=== PATIENT | female | born 1990 | race Caucasian/White ===

== ENCOUNTER 2016-10-02 17:53 | Emergency (ER) | payer OTHER ==
[~2016-10-02] VITALS: Ht 152.4 cm; Wt 96.7 kg
[~2016-10-02 17:53] MED LIST: ATARAX,VISTARIL25 MG PO; CIPRO250 MG PO; DIAMOX PO; DIAMOX SEQUELS500 MG PO; DIAZEPAM5 MG PO; DICYCLOMINE HCL20 MG PO; FORTAMET500 MG PO; GEODON20 MG PO; GEODON80 MG PR; HYDROXYZINE HCL10 MG PO; LAMICTAL5 MG PO; LITHIUM CARBON450 MG PO; MACRODANTIN100 MG PO; MEDROL DOSEPAK4 MG PO; MOBIC15 MG PO; NAPROSYN250 MG PO; PERCOCET 5/31 TABLET PO; PREVACID 24HR15 MG PO; PRILOSEC OTC20 MG PR; PROTONIX40 MG PO; PROZAC40 MG PO; SKELAXIN800 MG PO; TOPIRAMATE25 MG PO; VALIUM5 MG PO; XANAX0.25 MG PO; XANAX1 MG PR; ZANTAC75 M1 PO
[2016-10-02] MEDS ORDERED: KLONOPIN0.5 M1 PO (19:17)
[2016-10-02 20:06] VITALS: BP 111/80
== END 2016-10-02 20:07 | disposition home or self-care (01) ==
LOC: EME → EDBD 17:53 → EME 17:53
DX: F41.9 Anxiety disorder, unspecified (principal); F31.4 Bipolar disorder, current episode depressed, severe, without psychotic features; F17.200 Nicotine dependence, unspecified, uncomplicated
CPT/HCPCS: 90839; 99281; 99284

== ENCOUNTER 2016-10-04 14:27 | Emergency (ER) | payer OTHER ==
[~2016-10-04] VITALS: Ht 152.4 cm; Wt 94.7 kg
[~2016-10-04 14:27] MED LIST changes: +KLONOPIN0.5 M1 PO
[2016-10-04] MEDS ORDERED: XANAX0.5 MG PO (14:54)
[2016-10-04 15:45] VITALS: BP 110/67
== END 2016-10-04 15:48 | disposition home or self-care (01) ==
LOC: EME 14:27
DX: F41.1 Generalized anxiety disorder (principal); R07.89 Other chest pain; F17.200 Nicotine dependence, unspecified, uncomplicated
CPT/HCPCS: 99281; 99284

== ENCOUNTER 2016-10-27 09:37 | Emergency (ER) | payer OTHER ==
[~2016-10-27] VITALS: Ht 152.4 cm; Wt 95.0 kg
[~2016-10-27 09:37] MED LIST changes: +XANAX0.5 MG PO
[2016-10-27] MEDS ORDERED: XANAX0.5 MG PO (10:06)
[2016-10-27 10:14] VITALS: BP 98/67
== END 2016-10-27 10:24 | disposition home or self-care (01) ==
LOC: EME 09:37
DX: F41.9 Anxiety disorder, unspecified (principal); F17.200 Nicotine dependence, unspecified, uncomplicated
CPT/HCPCS: 99281; 99283

== ENCOUNTER 2016-12-11 12:40 | Emergency (ER) | payer OTHER ==
[~2016-12-11] VITALS: Ht 152.4 cm; Wt 97.6 kg
[2016-12-11] MEDS ORDERED: PANTOPRAZOLE SO40 MG PO (12:42)
[2016-12-11] MEDS ORDERED: FLUOXETINE HCL10 MG PO (12:43)
[2016-12-11] MEDS ORDERED: ARIPIPRAZOLE10 MG PO (12:43)
[2016-12-11] MEDS ORDERED: ACETAZOLAMIDE500 MG PO (12:43)
[2016-12-11] MEDS ORDERED: LITHIUM CARBON450 MG PO (12:44)
[2016-12-11] MEDS ORDERED: LAMOTRIGINE100 MG PO (12:44)
[2016-12-11] MEDS ORDERED: TOPIRAMATE50 MG PO (12:44)
[2016-12-11] MEDS ORDERED: BUSPAR5 MG PO (12:44)
[2016-12-11] MEDS ORDERED: MOTRIN600 MG PO (15:06)
[2016-12-11 15:29] VITALS: BP 102/58
== END 2016-12-11 15:29 | disposition home or self-care (01) ==
LOC: EME → EDBD 12:40 → EME 12:40
DX: M79.652 Pain in left thigh (principal); M25.552 Pain in left hip
CPT/HCPCS: 73502; 73552; 93971; 99281; 99284; J1885

== ENCOUNTER 2017-01-28 17:34 | Emergency (ER) | payer OTHER ==
[~2017-01-28] VITALS: Ht 154.9 cm; Wt 96.1 kg
[~2017-01-28 17:34] MED LIST changes: +ACETAZOLAMIDE500 MG PO; +ARIPIPRAZOLE10 MG PO; +BUSPAR5 MG PO; +FLUOXETINE HCL10 MG PO; +LAMOTRIGINE100 MG PO; +MOTRIN600 MG PO; +PANTOPRAZOLE SO40 MG PO; +TOPIRAMATE50 MG PO
[2017-01-28] MEDS ORDERED: MOBIC7.5 MG PO (19:35)
[2017-01-28 19:49] VITALS: BP 123/82
[2017-01-29] MEDS ORDERED: FLEXERIL10 MG PO (10:18)
== END 2017-01-28 19:50 | disposition home or self-care (01) ==
LOC: EME 17:34
DX: M54.42 Lumbago with sciatica, left side (principal); F17.200 Nicotine dependence, unspecified, uncomplicated
CPT/HCPCS: 72100; 99281; 99284; J1885

== ENCOUNTER 2017-01-29 09:18 | Emergency (ER) | payer OTHER ==
[~2017-01-29] VITALS: Ht 154.9 cm; Wt 94.5 kg
[~2017-01-29 09:18] MED LIST changes: +MOBIC7.5 MG PO
[2017-01-29] MEDS ORDERED: FLEXERIL10 MG PO (10:18)
[2017-01-29 10:29] VITALS: BP 108/60
== END 2017-01-29 10:30 | disposition home or self-care (01) ==
LOC: EME 09:18
DX: M54.30 Sciatica, unspecified side (principal); J45.909 Unspecified asthma, uncomplicated; K58.9 Irritable bowel syndrome, unspecified
CPT/HCPCS: 99281; 99284

== ENCOUNTER 2017-02-01 11:52 | Emergency (ER) | payer OTHER ==
[~2017-02-01 11:52] MED LIST changes: +FLEXERIL10 MG PO
== END 2017-02-01 12:20 | disposition left against medical advice (07) ==
LOC: EME 11:52
DX: M54.89 Other dorsalgia (principal); M25.562 Pain in left knee; Z53.21 Procedure and treatment not carried out due to patient leaving prior to being seen by health care provider

== ENCOUNTER 2017-06-14 00:30 | Emergency (ER) | payer OTHER ==
[~2017-06-14] VITALS: Ht 154.9 cm; Wt 87.9 kg
[2017-06-14 01:32] VITALS: BP 126/74
== END 2017-06-14 01:32 | disposition home or self-care (01) ==
LOC: EME 00:30
DX: M25.552 Pain in left hip (principal); G89.29 Other chronic pain; F17.200 Nicotine dependence, unspecified, uncomplicated
CPT/HCPCS: 99281; 99283

== ENCOUNTER 2017-07-25 13:35 | Emergency (ER) | payer OTHER ==
[~2017-07-25] VITALS: Ht 154.9 cm; Wt 92.7 kg
[2017-07-25] MEDS ORDERED: MOTRIN600 MG PO (14:07)
[2017-07-25] MEDS ORDERED: ROBAXIN500 MG PO (14:07)
[2017-07-25] MEDS ORDERED: ULTRAM50 MG PO (14:07)
[2017-07-25 14:25] VITALS: BP 103/68
== END 2017-07-25 14:59 | disposition home or self-care (01) ==
LOC: EME 13:35
DX: M54.42 Lumbago with sciatica, left side (principal); K58.9 Irritable bowel syndrome, unspecified; F17.210 Nicotine dependence, cigarettes, uncomplicated
CPT/HCPCS: 99281; 99283

== ENCOUNTER 2017-10-28 19:51 | Emergency (ER) | payer OTHER ==
[~2017-10-28] VITALS: Ht 154.9 cm; Wt 92.7 kg
[~2017-10-28 19:51] MED LIST changes: +ROBAXIN500 MG PO; +ULTRAM50 MG PO
[2017-10-28 20:43] LABS: HEMATOCRIT 39.3 % (36.0-46.0); HEMOGLOBIN 13.1 G/DL (11.9-15.5); MCH 28.1 PG (29.0-34.0); MCHC 33.3 G/DL (30.0-36.0); MCV 84.2 FL (83-99); PLATELET COUNT 311 K/uL (156-360); RBC DIS.WIDTH-CV 13.8 % (11.8-14.6); RBC DIS.WIDTH-SD 42.4 % (39-53); RED BLOOD COUNT 4.67 M/uL (3.80-5.20); WHITE BLOOD COUNT 9.2 K/uL (4.1-10.2)
[2017-10-28 20:54] LABS: CHLORIDE 108 mEq/L (99-109); POTASSIUM 4.1 mEq/L (3.7-5.4); SODIUM 140 mEq/L (136-147)
[2017-10-28 20:56] LABS: GLUCOSE 90 mg/dL (70-99)
[2017-10-28 20:57] LABS: AMPHETAMINE NEGATIVE (500 ng/mL); BARBITURATES NEGATIVE (200 ng/mL); BENZODIAZEPINES PRESUMPTIVE POSITIVE (150 ng/mL); BUPRENORPHINE NEGATIVE (10 ng/mL); COCAINE NEGATIVE (150 ng/mL); METHADONE NEGATIVE (200 ng/mL); METHAMPHETAMINE NEGATIVE (500 ng/mL); OPIATES (MORPHINE) NEGATIVE (100 ng/mL); OXYCODONE NEGATIVE (100 ng/mL); PHENCYCLIDINE NEGATIVE (25 ng/mL); PROPOXYPHENE NEGATIVE (300 ng/mL); THC CANNABINOIDS PRESUMPTIVE POSITIVE (50 ng/mL); TRICYCLIC ANTIDEPRESSANTS NEGATIVE (300 ng/mL)
[2017-10-28 20:59] LABS: SERUM ETHYL ALCOHOL < 10 mg/dL
[2017-10-28 21:00] LABS: CREATININE 0.9 mg/dL (0.6-1.3); GFR ESTIMATE (CALCULATED) > 59 mL/min/
[2017-10-28 21:01] LABS: UREA NITROGEN (BUN) 10 mg/dL (9-23)
[2017-10-28 21:03] LABS: ACETAMINOPHEN (TYLENOL) < 10 mcg/mL (10-30); SALICYLATE < 5.0 MG/DL (15-30)
[2017-10-28 21:19] LABS: BENZODIAZEPINES, URINE SCREEN POSITIVE (200 ng/mL)
[2017-10-28 21:48] VITALS: BP 120/70
== END 2017-10-28 21:52 | disposition home or self-care (01) ==
LOC: EME 19:51
PROVIDERS: Emergency Medicine
DX: F31.4 Bipolar disorder, current episode depressed, severe, without psychotic features (principal); Z04.6 Encounter for general psychiatric examination, requested by authority; J45.909 Unspecified asthma, uncomplicated; K58.9 Irritable bowel syndrome, unspecified; F41.9 Anxiety disorder, unspecified; F17.200 Nicotine dependence, unspecified, uncomplicated; Z87.19 Personal history of other diseases of the digestive system
CPT/HCPCS: 80048; 84999; 85027; 90837; 99281; 99285; G0480

== ENCOUNTER 2017-11-12 20:14 | Emergency (ER) | payer OTHER ==
[~2017-11-12] VITALS: Ht 152.4 cm; Wt 97.3 kg
[2017-11-12] MEDS ORDERED: NORCO 5/3251 TABLET PO (21:53)
[2017-11-12] MEDS ORDERED: NAPROSYN375 MG PO (21:53)
[2017-11-12 22:00] VITALS: BP 104/73
== END 2017-11-12 22:12 | disposition home or self-care (01) ==
LOC: EME 20:14
DX: S93.401A Sprain of unspecified ligament of right ankle, initial encounter (principal); W00.0XXA Fall on same level due to ice and snow, initial encounter; F17.200 Nicotine dependence, unspecified, uncomplicated
CPT/HCPCS: 73610; 99281; 99284

== ENCOUNTER 2017-12-17 11:00 | Emergency (ER) | payer OTHER ==
[~2017-12-17] VITALS: Ht 152.4 cm; Wt 95.0 kg
[~2017-12-17 11:00] MED LIST changes: +NAPROSYN375 MG PO; +NORCO 5/3251 TABLET PO
[2017-12-17] MEDS ORDERED: VOLTAREN 1% GE100 GM TP (14:14)
[2017-12-17] MEDS ORDERED: LIDODERM 5% P1 PATCH TD (14:14)
[2017-12-17] MEDS ORDERED: SKELAXIN800 MG PO (14:14)
[2017-12-17] MEDS ORDERED: TRAMADOL HCL50 MG PO (14:33)
[2017-12-17 14:44] VITALS: BP 124/82
== END 2017-12-17 14:46 | disposition home or self-care (01) ==
LOC: RME 11:00 → EME 11:00 → RME 14:46
DX: M54.42 Lumbago with sciatica, left side (principal); M25.552 Pain in left hip; F17.200 Nicotine dependence, unspecified, uncomplicated; Z71.6 Tobacco abuse counseling; K58.9 Irritable bowel syndrome, unspecified
CPT/HCPCS: 99281; 99284; J1885